=== PATIENT | female | born 1935 | race Caucasian/White ===

== ENCOUNTER 2017-09-04 05:37 | Inpatient (IN) | payer MEDICARE ==
[~2017-09-04] VITALS: Ht 160 cm; Wt 72.6 kg
[~2017-09-04 05:37] MED LIST: ASPI-496 PO; CALC-112 PO; CHOL100012 PO; CYAN100014 PO; FLAX1000 PO; MAGN400T7 PO; NIAC250T2 PO; OLME20TA19 PO; OMEP40CA6 PO; PRED1TAB PO; RED600TA PO; UBID100C24 PO
[2017-09-04] MEDS ORDERED: LACTATED RINGERS 1,000 ML IV SCH (06:13)
[2017-09-04 06:14] VITALS: BP 151/93
[2017-09-04] MEDS ORDERED: LIDOCAINE 1%, 2ML SQ PRN (06:30)
[2017-09-04] MEDS ORDERED: BUPIVACAINE/PF 0.5% ONE (06:45)
[2017-09-04] MEDS ORDERED: EPINEPHRINE 1 MG/ML, 1ML ONE (06:45)
[2017-09-04] MEDS ORDERED: VANCOMYCIN 1,000 MG ONE (06:45)
[2017-09-04] MEDS ORDERED: THROMBIN 5,000 UNIT VIAL TP ONE (06:45)
[2017-09-04] MEDS ORDERED: BACITRACIN 50,000 UNIT ONE (06:47)
[2017-09-04] MEDS ORDERED: ROCURONIUM 10 MG/ML ONE (07:01)
[2017-09-04] MEDS ORDERED: SUCCINYLCHOLINE 20 MG/ML, 10ML ONE (07:01)
[2017-09-04] MEDS ORDERED: DEXAMETHASONE 4 MG/ML, 1ML ONE ×3 (07:01)
[2017-09-04] MEDS ORDERED: ONDANSETRON 2MG/ML, 2ML ONE (07:01)
[2017-09-04] MEDS ORDERED: PROPOFOL 10 MG/ML, 20ML ONE (07:01)
[2017-09-04] MEDS ORDERED: FENTANYL PF 100 MCG/2ML ONE ×2 (07:03→09:34)
[2017-09-04] MEDS ORDERED: MIDAZOLAM 1 MG/ML, 2ML ONE (07:03)
[2017-09-04] MEDS ORDERED: HYDROmorphone 2 MG/ML, 1ML ONE (07:03)
[2017-09-04] MEDS ORDERED: METOCLOPRAMIDE 5 MG/ML, 2ML IV PRN (09:30)
[2017-09-04] MEDS ORDERED: ACETAMINOPHEN 325 MG TABLET PO PRN (09:30)
[2017-09-04] MEDS ORDERED: LABETALOL 5MG/ML, 20ML IV PRN (09:30)
[2017-09-04] MEDS ORDERED: HYDROmorphone 1 MG/ML, 1ML IV PRN (09:30)
[2017-09-04] MEDS ORDERED: ONDANSETRON 2MG/ML, 2ML IVPush PRN (09:30)
[2017-09-04] MEDS ORDERED: OXYcodone 5 MG/5 ML ORAL.SOL UDC PO PRN (09:30)
[2017-09-04] MEDS ORDERED: hydrALAzine 20 MG/ML, 1ML IV PRN (09:30)
[2017-09-04] MEDS ORDERED: OXYcodone 5 MG/5 ML ORAL.SOL UDC ONE (09:34)
[2017-09-04] MEDS ORDERED: ACETAMINOPHEN 650 MG/20.3 ML UDC ONE (09:34)
[2017-09-04] MEDS: FENTANYL PF 100 MCG/2ML IV PRN ×4 (09:37→10:04)
[2017-09-04] MEDS ORDERED: HYDROmorphone PCA 30 MG/30 ML ONE (09:50)
[2017-09-04] MEDS ORDERED: HYDROmorphone PCA 30 MG/30 ML IV PRN ×2 (10:00→11:36)
[2017-09-04] MEDS ORDERED: OXYcodone/APAP 5/325MG TABLET PO PRN (11:30)
[2017-09-04] MEDS ORDERED: BISACODYL 10 MG SUPP PR PRN (11:30)
[2017-09-04] MEDS ORDERED: ONDANSETRON 2MG/ML, 2ML IV PRN (11:30)
[2017-09-04] MEDS ORDERED: morphine SULFATE 10 MG/ML, 1ML IV PRN (11:30)
[2017-09-04] MEDS ORDERED: MAGNESIUM HYDROXIDE 8%, 30ML UDC PO PRN (11:30)
[2017-09-04] MEDS ORDERED: TIZANIDINE 4MG TABLET PO PRN (12:00)
[2017-09-04] MEDS ORDERED: HYDROcodone/APAP 10/325 MG TABLET PO PRN (12:00)
[2017-09-04] MEDS ORDERED: DIAZEPAM 5 MG TABLET PO PRN (12:00)
[2017-09-04] MEDS ORDERED: DIAZEPAM 5 MG/ML, 2ML IV PRN (12:00)
[2017-09-04] MEDS ORDERED: DIPHENHYDRAMINE 50 MG/ML, 1ML IVPush PRN (12:00)
[2017-09-04] MEDS ORDERED: DIPHENHYDRAMINE 25 MG CAPSULE PO PRN (12:00)
[2017-09-04] MEDS: NS + 20MEQ KCL 1,000 ML IV SCH ×2 (13:25→23:11)
[2017-09-04 13:30] VITALS: BP 118/70
[2017-09-04] MEDS: CEFAZOLIN PMX 1GM/50ML 50 ML IVPB SCH ×2 (15:51→23:11)
[2017-09-04 19:57] VITALS: BP 114/60
[2017-09-04] MEDS ORDERED: NIACIN 250 MG CAPSULE.ER PO SCH (21:00)
[2017-09-04] MEDS ORDERED: VALSARTAN 160 MG TABLET PO SCH (21:00)
[2017-09-05 00:25] VITALS: BP 110/71
[2017-09-05 05:06] VITALS: BP 120/72
[2017-09-05 05:43] LABS: HEMOGLOBIN 11.1 g/dL (11.7-16.4); WHITE BLOOD COUNT 11.3 x10^3/uL (3.4-10)
[2017-09-05 06:02] LABS: BLOOD UREA NITROGEN 12 mg/dL (7-18)
[2017-09-05 07:28] VITALS: BP 122/76
[2017-09-05] MEDS ORDERED: OMEPRAZOLE 20 MG CAPSULE.DR PO SCH (07:30)
[2017-09-05] MEDS ORDERED: CHOLECALCIFEROL 1,000 UNIT TABLET PO SCH (09:00)
[2017-09-05] MEDS ORDERED: SENNA/DOCUSATE TABLET PO SCH (09:00)
[2017-09-05] MEDS ORDERED: CALCIUM/VITAMIN D3 250-125 TABLET PO SCH (09:00)
[2017-09-05] MEDS ORDERED: CYANOCOBALAMIN 1,000 MCG TABLET PO SCH (09:00)
[2017-09-05] MEDS ORDERED: MAGNESIUM OXIDE 400 MG TABLET PO SCH (09:00)
[2017-09-05] MEDS ORDERED: OXYC1TAB7 PO (09:38)
[2017-09-05] MEDS ORDERED: TIZA2TAB PO (09:38)
[2017-09-05 10:29] VITALS: BP 115/70
== END 2017-09-05 11:43 | disposition home or self-care (01) | DRG 519 ==
LOC: OUT 05:37 → 4NOR 10:51 → OUT 11:24 → DCLOUNGE 09-05 11:20
PROVIDERS: ADMIT Neurological Surgery; ATTEND Neurological Surgery
PROC: 01N10ZZ Release Cervical Nerve, Open Approach (ICD-10-PCS; 2017-09-04)
PROC: 00NW0ZZ Release Cervical Spinal Cord, Open Approach (ICD-10-PCS; principal; 2017-09-04 07:30)
DX: M48.02 Spinal stenosis, cervical region (principal); M47.12 Other spondylosis with myelopathy, cervical region; I10 Essential (primary) hypertension; M19.90 Unspecified osteoarthritis, unspecified site; Z87.891 Personal history of nicotine dependence; Z90.710 Acquired absence of both cervix and uterus; Z88.8 Allergy status to other drugs, medicaments and biological substances; Z82.3 Family history of stroke; Z82.61 Family history of arthritis; Z80.9 Family history of malignant neoplasm, unspecified
CPT/HCPCS: 36415; 72040; 80048; 85025; 95938; 95941; C1713; J0171; J0690; J1100; J1170; J2250; J2405; J2704; J3010; J3370; J3480; J3490; J7512; J0330; J7120